=== PATIENT | female | born 1950 | race Hispanic/Latino ===

== ENCOUNTER 2018-06-08 19:46 | Emergency (ER) | payer SELFPAY ==
[~2018-06-08] VITALS: Ht 154.9 cm; Wt 74.8 kg
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
== END 2018-06-08 22:00 | disposition home or self-care (01) ==
LOC: FSED 19:46
DX: S00.83XA Contusion of other part of head, initial encounter (principal); S20.219A Contusion of unspecified front wall of thorax, initial encounter; S00.31XA Abrasion of nose, initial encounter; Y04.0XXA Assault by unarmed brawl or fight, initial encounter; Y92.488 Other paved roadways as the place of occurrence of the external cause
CPT/HCPCS: 70450; 71045; 93005; 99283